=== PATIENT | female | born 1965 | race Caucasian/White ===

== ENCOUNTER 2021-01-20 13:09 | Emergency (ER) | payer MEDICAID ==
[~2021-01-20] VITALS: Ht 160 cm; Wt 90.0 kg
--- NOTE | 2021-01-20 16:31 | RAD ---
XR CHEST 1V History: Pain Comparison: None. Findings: No consolidation or pleural effusion. Normal heart size. No pneumothorax. Posttraumatic deformity of the left distal clavicle. Impression: 1. No acute cardiopulmonary process. Electronically signed by: Jhonatan Marie DO (01/20/2021 4:29 PM) [facility]
--- NOTE | 2021-01-20 16:33 | RAD ---
XR ELBOW COMPLETE_LEFT 3+VIEWS, XR HUMERUS_LT 2 VIEWS History: Reason: left elbow pain intermittent x1 week / Spl. Instructions: / History: Technique: 2 views left humerus and 3 views left elbow Comparison: None. Findings: Posttraumatic deformity of the left distal clavicle with ununited fracture fragment and acromioclavic ular separation. Normal alignment of the glenohumeral joint. No acute fracture. Normal alignment of the elbow. No significant elbow joint effusion. No fracture. Impression: 1. No acute osseous abnormality. Electronically signed by: Jhonatan Marie DO (01/20/2021 4:31 PM) [facility]
[2021-01-20] MEDS ORDERED: HYDROcodone/APAP 5/325MG 1 TAB TABLET PO ONE (16:45)
--- NOTE | 2021-01-20 16:45 | ED.ADGEN ---
General Adult EDM: Chief Complaint: UPPER EXTREMITY PAIN HPI: HPI: Patient is a 55 year old female who presents emergency department complaints of pain in her left elbow and left arm for the last week that increases with movement and palpation. She denies any known injury. She denies any recent heavy lifting. Patient states that when the pain becomes severe it causes her to get sweaty and short of breath. She denies any fever, headache, chest pain, palpitations, nausea, vomiting, diarrhea, abdominal pain, back pain, numbness, tingling, or weakness. Patient denies any redness, swelling, or warmth of the affected elbow and arm. She currently rates the pain a 10 out of 10 on pain scale, she denies any alleviating or exacerbating factors. Review of Systems: Review of Systems: Complete ROS is negative unless otherwise noted in HPI. Current Medications: Current Medications Medications (Trade) Dose Ordered Sig/Cruz Start Time Stop Time Status Last Admin Dose Admin Acetaminophen/ Hydrocodone Bitart (Lortab 5/325) 1 tab 1X ONCE 01/20/21 16:45 01/20/21 18:01 DC 01/20/21 18:04 1 TAB Allergies: Allergies: Allergies Coded Allergies Type Severity Reaction Last Updated Verified No Known Drug Allergies 01/20/21 No Physical Exam: PE: See Above Constitutional: Well developed, well nourished, mild distress, non-toxic appearance, appears uncomfortable. [] HENT: Normocephalic, atraumatic, bilateral external ears normal, nose normal. [] Eyes: PERRLA, EOMI, conjunctiva normal, no discharge. [] Neck: Normal range of motion, no stridor. [] Cardiovascular:Heart rate regular rhythm Lungs & Thorax: Respirations even and unlabored, no retractions, no respiratory distress Abdomen: soft, no tenderness Skin: Warm, dry, no erythema, no rash. [] Extremities: EDWINA: Tenderness to palpation of the distal end of the humerus and lateral elbow, no obvious deformity, no crepitus, 2+ radial pulse, cap refill less than 2 seconds, no cyanosis, ROM intact, no edema. [] Neurologic: Alert and oriented X 3, normal motor, normal sensory, no focal deficits noted. [] Psychologic: Affect normal, judgement normal, mood normal. [] Current Patient Data: Labs: Laboratory Tests Test 01/20/21 17:14 White Blood Count 6.8 x10^3/uL (4.0-11.0) Red Blood Count 4.49 x10^6/uL (3.50-5.40) Hemoglobin 13.8 g/dL (12.0-15.5) Hematocrit 41.3 % (36.0-47.0) Mean Corpuscular Volume 92 fL (79-100) Mean Corpuscular Hemoglobin 31 pg (25-35) Mean Corpuscular Hemoglobin Concent 33 g/dL (31-37) Red Cell Distribution Width 14.2 % (11.5-14.5) Platelet Count 305 x10^3/uL (140-400) Neutrophils (%) (Auto) 48 % (31-73) Lymphocytes (%) (Auto) 41 % (24-48) Monocytes (%) (Auto) 8 % (0-9) Eosinophils (%) (Auto) 3 % (0-3) Basophils (%) (Auto) 1 % (0-3) Neutrophils # (Auto) 3.2 x10^3/uL (1.8-7.7) Lymphocytes # (Auto) 2.7 x10^3/uL (1.0-4.8) Monocytes # (Auto) 0.5 x10^3/uL (0.0-1.1) Eosinophils # (Auto) 0.2 x10^3/uL (0.0-0.7) Basophils # (Auto) 0.1 x10^3/uL (0.0-0.2) Sodium Level 143 mmol/L (136-145) Potassium Level 3.8 mmol/L (3.5-5.1) Chloride Level 104 mmol/L (98-107) Carbon Dioxide Level 28 mmol/L (21-32) Anion Gap 11 (6-14) Blood Urea Nitrogen 15 mg/dL (7-20) Creatinine 0.8 mg/dL (0.6-1.0) Estimated GFR (Cockcroft-Gault) 74.2 BUN/Creatinine Ratio 19 (6-20) Glucose Level 87 mg/dL (70-99) Calcium Level 9.1 mg/dL (8.5-10.1) Magnesium Level 2.3 mg/dL (1.8-2.4) Total Bilirubin 0.4 mg/dL (0.2-1.0) Aspartate Amino Transferase (AST) 17 U/L (15-37) Alanine Aminotransferase (ALT) 25 U/L (14-59) Alkaline Phosphatase 106 U/L (46-116) Creatine Kinase 60 U/L (26-192) Creatine Kinase MB (Mass) 0.7 ng/mL (0.0-3.6) Creatine Kinase MB Relative Index % (0-4) Troponin I Quantitative < 0.017 ng/mL (0.000-0.055) Total Protein 8.1 g/dL (6.4-8.2) Albumin 4.0 g/dL (3.4-5.0) Albumin/Globulin Ratio 1.0 (1.0-1.7) Laboratory Tests 01/20/21 17:14 Laboratory Tests 01/20/21 17:14 Vital Signs: Vital Signs Date Time Temp Pulse Resp B/P (MAP) Pulse Ox O2 Delivery O2 Flow Rate FiO2 01/20/21 18:51 65 18 140/87 (104) 98 Room Air 01/20/21 15:45 98.2 98.2 EKG: EK-sinus rhythm, rate 75, no STEMI, read by Dr. Christopher [] Heart Score: C/O Chest Pain: No Risk Factors: Risk Factors: DM, Current or recent (<one month) smoker, HTN, HLP, family history of CAD, obesity. Risk Scores: Score 0 - 3: 2.5% MACE over next 6 weeks - Discharge Home Score 4 - 6: 20.3% MACE over next 6 weeks - Admit for Clinical Observation Score 7 - 10: 72.7% MACE over next 6 weeks - Early Invasive Strategies Radiology/Procedures: Radiology/Procedures: PROCEDURE: HUMERUS LEFT XR ELBOW COMPLETE_LEFT 3+VIEWS, XR HUMERUS_LT 2 VIEWS History: Reason: left elbow pain intermittent x1 week / Spl. Instructions: / History: Technique: 2 views left humerus and 3 views left elbow Comparison: None. Findings: Posttraumatic deformity of the left distal clavicle with ununited fracture fragment and acromioclavicular separation. Normal alignment of the glenohumeral joint. No acute fracture. Normal alignment of the elbow. No significant elbow joint effusion. No fracture. Impression: 1. No acute osseous abnormality. Electronically signed by: Jhonatan Marie DO (01/20/2021 4:31 PM) [facility] PROCEDURE: CHEST AP ONLY XR CHEST 1V History: Pain Comparison: None. Findings: No consolidation or pleural effusion. Normal heart size. No pneumothorax. Postt raumatic deformity of the left distal clavicle. Impression: 1. No acute cardiopulmonary process. Electronically signed by: Jhonatan Marie DO (01/20/2021 4:29 PM) [facility] [] Course & Med Decision Making: Course & Med Decision Making Pertinent Labs and Imaging studies reviewed. (See chart for details) [] Dragon Disclaimer: Dragon Disclaimer: This electronic medical record was generated, in whole or in part, using a voice recognition dictation system. Departure Departure Impression: Primary Impression: Left upper arm pain Additional Impression: Left elbow pain Disposition: HOME / SELF CARE / HOMELESS Condition: STABLE Referrals: NO PCP (PCP) Patient Instructions: Arm Sling Use, [id number] Additional Instructions: Fill the prescription and use it as directed. You may also take Tylenol or ibuprofen as needed for pain. Apply heat or ice to the sore area as needed for comfort. Wear the sling as needed for comfort, recommend early mobilization of the left arm, follow-up with your primary care doctor or Dr. Conteh in 1 to 2 days for reevaluation, return to the ER if symptoms worsen or fever develops. Scripts Cyclobenzaprine Hcl (CYCLOBENZAPRINE HCL) 10 Mg Tablet 1 TAB PO TID PRN for PAIN, #30 TAB 0 Refills Prov: KAREN MARKS APRN 01/20/21 Attending Signature Attending Signature I have reviewed the PA/[employer]'s note and plan of care. I was available for consultation as needed during the patient's visit in the emergency department. I agree with the clinical impression, plan, and disposition. Problem Qualifiers KAREN MARKS APRN Jan 20, 2021 16:45 CHRISTOPHERCODY SUMMERS DO Jan 23, 2021 13:03
[2021-01-20 17:23] LABS: BASO # 0.1 x10^3/uL (0.0-0.2); BASO % 1 % (0-3); EOS # 0.2 x10^3/uL (0.0-0.7); EOS % 3 % (0-3); HEMATOCRIT 41.3 % (36.0-47.0); HEMOGLOBIN 13.8 g/dL (12.0-15.5); LYMPH # 2.7 x10^3/uL (1.0-4.8); LYMPH % 41 % (24-48); MEAN CORPUSCULAR HEMOGLOBIN 31 pg (25-35); MEAN CORPUSCULAR HGB CONC 33 g/dL (31-37); MEAN CORPUSCULAR VOLUME 92 fL (79-100); MONO # 0.5 x10^3/uL (0.0-1.1); MONO % 8 % (0-9); NEUT # 3.2 x10^3/uL (1.8-7.7); NEUT % 48 % (31-73); PLATELET COUNT 305 x10^3/uL (140-400); RED BLOOD COUNT 4.49 x10^6/uL (3.50-5.40); RED CELL DISTRIBUTION WIDTH 14.2 % (11.5-14.5); WHITE BLOOD COUNT 6.8 x10^3/uL (4.0-11.0)
[2021-01-20 17:31] LABS: CALCIUM 9.1 mg/dL (8.5-10.1); CREATININE 0.8 mg/dL (0.6-1.0); GFR 74.2; POTASSIUM 3.8 mmol/L (3.5-5.1)
[2021-01-20 17:44] LABS: MAGNESIUM 2.3 mg/dL (1.8-2.4); TOTAL BILIRUBIN 0.4 mg/dL (0.2-1.0); TOTAL PROTEIN 8.1 g/dL (6.4-8.2)
[2021-01-20 17:46] LABS: CREATINE KINASE 60 U/L (26-192)
[2021-01-20] MEDS ORDERED: CYCL10TA2 PO (18:29)
[2021-01-20 18:51] VITALS: BP 140/87
== END 2021-01-20 18:54 | disposition home or self-care (01) ==
LOC: ER 13:09
DX: M25.522 Pain in left elbow (principal); M79.602 Pain in left arm; R06.02 Shortness of breath
CPT/HCPCS: 36415; 71045; 73060; 73080; 80053; 82553; 83735; 84484; 85025; 93005; 99285; A4565